=== PATIENT | male | born 1940 | race Caucasian/White ===

== ENCOUNTER 2023-08-30 17:50 | Emergency (ER) | payer MEDICARE ==
[2023-08-30 18:14] LABS: BASOPHILS ABSOLUTE AUTO 0.02 K/uL (0.00-0.10); BASOPHILS PERCENT AUTO 0.5 % (0.1-1.3); EOSINOPHILS PERCENT AUTO 2.6 % (0.0-5.4); HEMATOCRIT 42.5 % (38.4-49.7); HEMOGLOBIN 15.1 g/dL (12.9-16.9); IMMATURE GRAN ABSOLUTE AUTO 0.01 K/uL (0.00-0.23); IMMATURE GRAN PERCENT AUTO 0.3 % (0.0-0.7); LYMPHOCYTES ABSOLUTE AUTO 1.37 K/uL (0.8-3.3); LYMPHOCYTES PERCENT AUTO 34.9 % (11.4-47.7); MEAN CORPUSCULAR HGB CONC 35.5 g/dL (31.6-35.5); MONOCYTES ABSOLUTE AUTO 0.29 K/uL (0.20-0.90); MONOCYTES PERCENT AUTO 7.4 % (3.3-12.6); NEUTROPHILS ABSOLUTE AUTO 2.13 K/uL (1.0-7.6); NEUTROPHILS PERCENT AUTO 54.3 % (40.0-78.1); PLATELET COUNT,PLT 170 K/uL (130-375); RED BLOOD CELL COUNT 4.72 M/uL (4.14-5.76); WHITE BLOOD CELL COUNT,WBC 3.9 K/uL (3.2-11.0)
[2023-08-30] MEDS ORDERED: Iopamidol 755 Mg/ML 100 ML Bottle IV SCH (18:15)
[2023-08-30] MEDS ORDERED: Sodium Chloride 0.9% 100 ML IV SCH (18:15)
[2023-08-30 18:32] LABS: ANION GAP 9.9 mmol/L (5.0-14.0); BLOOD UREA NITROGEN,BUN 16 mg/dL (7-18); CALCIUM 8.5 mg/dL (8.5-10.1); CARBON DIOXIDE,CO2 25 mmol/L (21-32); CHLORIDE,CL 105 mmol/L (100-108); CREATININE 1.2 mg/dL (0.8-1.3); EST CRCL DRUG DOSING (CG) 51.19 mL/min; ESTIMATED GFR 60 mL/min (>60); GLUCOSE RANDOM 166 mg/dL (74-106); POTASSIUM,K 3.7 mmol/L (3.6-5.2); SODIUM,NA 140 mmol/L (140-148)
[2023-08-30 18:38] LABS: C-REACTIVE PROTEIN < 0.50 mg/dL (<0.50)
[2023-08-30] MEDS ORDERED: Sodium Chloride 0.9% 1,000 ML IV ONE (19:26)
[2023-08-30 20:41] LABS: APPEARANCE,URINE CLEAR (CLEAR); BILIRUBIN,URINE NEGATIVE (NEGATIVE); COLOR,URINE YELLOW (YELLOW); GLUCOSE,URINE NEGATIVE (NEGATIVE); KETONES,URINE NEGATIVE (NEGATIVE); LEUKOCYTE ESTERASE,URINE NEGATIVE (NEGATIVE); NITRITE,URINE NEGATIVE (NEGATIVE); OCCULT BLOOD,URINE NEGATIVE (NEGATIVE); PROTEIN,URINE NEGATIVE (NEGATIVE); UROBILINOGEN,URINE 0.2 EU/dL (0.2-1.0)
[2023-08-30 20:48] LABS: AMORPHOUS SEDIMENT,URINE NOT SEEN; BACTERIA,URINE RARE; EPITHELIAL CELLS,URINE NOT SEEN; MUCUS,URINE NOT SEEN; RBC,URINE 0-5 (0-5); WBC,URINE 0-5 (0-5)
[2023-08-30 23:37] VITALS: BP 172/82; PULSE 67
== END 2023-08-30 23:34 | disposition other institution (70) ==
LOC: JP.ED 17:50
DX: I63.9 Cerebral infarction, unspecified (principal); I10 Essential (primary) hypertension; E78.00 Pure hypercholesterolemia, unspecified; Z79.82 Long term (current) use of aspirin; Z88.2 Allergy status to sulfonamides; Z79.899 Other long term (current) drug therapy
CPT/HCPCS: 36415; 70450; 70496; 70498; 80048; 81001; 83605; 84484; 85025; 86140; 93005; 96360; 99285; J3490; J7030; Q9967

== ENCOUNTER 2024-11-28 08:11 | Day surgery (SDC) | payer MEDICARE ==
[~2024-11-28 08:11] MED LIST: Bupivacaine 0.5% 30 ML SDV ONE
[2024-11-28] MEDS ORDERED: Propofol 200 MG/20 ML SDV ONE (08:32)
[2024-11-28] MEDS ORDERED: Ondansetron 4 MG/2 ML SDV ONE (08:32)
[2024-11-28] MEDS ORDERED: Bupivacaine 0.5% 30 ML SDV ONE (08:32)
[2024-11-28] MEDS ORDERED: Dexamethasone 4 MG/ML SDV ONE (08:32)
[2024-11-28] MEDS ORDERED: fentaNYL 250 MCG/5 ML SDV ONE (08:38)
[2024-11-28 08:45] LABS: HEMOGLOBIN 15.6 g/dL (12.9-16.9); MEAN CORPUSCULAR HGB CONC 35.5 g/dL (31.6-35.5); MEAN CORPUSCULAR VOLUME 90.2 fL (81.4-99.0); RED BLOOD CELL COUNT 4.88 M/uL (4.14-5.76); WHITE BLOOD CELL COUNT,WBC 6.4 K/uL (3.2-11.0)
[2024-11-28] MEDS: Nozin Nasal Sanitizer NASBOTH ONE (09:05)
[2024-11-28 09:08] LABS: A/G RATIO 1.4 (1.2-2.2); ALANINE AMINOTRANSFERASE,ALT 23 U/L (12-78); ALBUMIN 4.1 g/dL (3.4-5.0); ALKALINE PHOSPHATASE 87 U/L (46-116); ASPARTATE AMNIOTRANSFERASE,AST 16 U/L (15-37); BLOOD UREA NITROGEN,BUN 15 mg/dL (7-18); CALCIUM 9.5 mg/dL (8.5-10.1); CARBON DIOXIDE,CO2 28 mmol/L (21-32); CHLORIDE,CL 106 mmol/L (100-108); CREATININE 1.1 mg/dL (0.8-1.3); EST CRCL DRUG DOSING (CG) 53.89 mL/min; ESTIMATED GFR 66 mL/min (>60); GLUCOSE RANDOM 106 mg/dL (74-106); SODIUM,NA 143 mmol/L (140-148)
[2024-11-28] MEDS: Lactated Ringers 1,000 ML IV SCH (09:21)
[2024-11-28] MEDS: ceFAZolin 2 GM in Premix Bag 1 BAG IV ONE (11:55)
[2024-11-28] MEDS ORDERED: Lactated Ringers 1,000 ML ONE (12:41)
[2024-11-28] MEDS ORDERED: Neostigmine Methylsulfate 10 MG/10 ML MDV ONE (12:41)
[2024-11-28] MEDS ORDERED: Rocuronium 50 MG/5 ML Vial ONE (12:41)
[2024-11-28] MEDS ORDERED: Glycopyrrolate 0.2 MG/ML 5 ML MDV ONE (12:41)
[2024-11-28] MEDS ORDERED: Succinylcholine 200 MG/10 ML MDV ONE (12:41)
[2024-11-28] MEDS ORDERED: traMADol 50 MG Tab PO PRN (14:22)
[2024-11-28] MEDS: Ondansetron 4 MG/2 ML SDV IVPUSH PRN (15:32)
[2024-11-28 16:46] VITALS: PULSE 64
[2024-11-28 17:37] VITALS: BP 134/78
== END 2024-11-28 17:35 | disposition home or self-care (01) ==
LOC: JP.SDS 08:11
PROVIDERS: ATTEND Specialist
DX: M75.101 Unspecified rotator cuff tear or rupture of right shoulder, not specified as traumatic (principal); M75.41 Impingement syndrome of right shoulder; M75.51 Bursitis of right shoulder; M65.911 Unspecified synovitis and tenosynovitis, right shoulder; S43.001A Unspecified subluxation of right shoulder joint, initial encounter; I10 Essential (primary) hypertension; K21.9 Gastro-esophageal reflux disease without esophagitis; X58.XXXA Exposure to other specified factors, initial encounter
CPT/HCPCS: 29827; 36415; 80053; 85027; A9270; C1713; J0330; J0665; J0690; J1100; J1596; J2405; J2704; J2710; J3010; J7120; 01630-QZ; J3490

== ENCOUNTER 2024-12-06 22:53 | Emergency (ER) | payer MEDICARE ==
[2024-12-06] MEDS: Lidocaine 2% Jelly 10 ML Urojet MUCMEM ONE (23:20)
[2024-12-06] MEDS: Lidocaine 2% Jelly 10 ML Urojet ONE (23:46)
[2024-12-07 00:01] LABS: BILIRUBIN,URINE NEGATIVE (NEGATIVE); COLOR,URINE YELLOW (YELLOW); GLUCOSE,URINE NEGATIVE (NEGATIVE); KETONES,URINE NEGATIVE (NEGATIVE); LEUKOCYTE ESTERASE,URINE NEGATIVE (NEGATIVE); NITRITE,URINE NEGATIVE (NEGATIVE); OCCULT BLOOD,URINE LARGE (NEGATIVE); PROTEIN,URINE TRACE mg/dL (NEGATIVE); UROBILINOGEN,URINE 0.2 EU/dL (0.2-1.0)
[2024-12-07 00:08] LABS: AMORPHOUS SEDIMENT,URINE RARE; APPEARANCE,URINE SLIGHTLY CLOUDY (CLEAR); BACTERIA,URINE FEW; EPITHELIAL CELLS,URINE RARE; MUCUS,URINE FEW; RBC,URINE 50-75 (0-5)
[2024-12-07 00:16] LABS: BASOPHILS PERCENT AUTO 0.3 % (0.1-1.3); EOSINOPHILS PERCENT AUTO 3.2 % (0.0-5.4); HEMATOCRIT 38.6 % (38.4-49.7); HEMOGLOBIN 13.8 g/dL (12.9-16.9); IMMATURE GRAN PERCENT AUTO 0.3 % (0.0-0.7); LYMPHOCYTES ABSOLUTE AUTO 1.23 K/uL (0.8-3.3); LYMPHOCYTES PERCENT AUTO 19.9 % (11.4-47.7); MEAN CORPUSCULAR HEMOGLOBIN 31.7 pg (31.6-35.5); MEAN CORPUSCULAR HGB CONC 35.8 g/dL (31.6-35.5); MEAN CORPUSCULAR VOLUME 88.7 fL (81.4-99.0); MONOCYTES ABSOLUTE AUTO 0.54 K/uL (0.20-0.90); MONOCYTES PERCENT AUTO 8.8 % (3.3-12.6); NEUTROPHILS ABSOLUTE AUTO 4.16 K/uL (1.0-7.6); NEUTROPHILS PERCENT AUTO 67.5 % (40.0-78.1); PLATELET COUNT,PLT 173 K/uL (130-375); RED BLOOD CELL COUNT 4.35 M/uL (4.14-5.76); WHITE BLOOD CELL COUNT,WBC 6.2 K/uL (3.2-11.0)
[2024-12-07 00:17] LABS: BASOPHILS ABSOLUTE AUTO 0.02 K/uL (0.00-0.10); IMMATURE GRAN ABSOLUTE AUTO 0.02 K/uL (0.00-0.23)
[2024-12-07 00:38] LABS: ANION GAP 7.8 mmol/L (5.0-14.0); CALCIUM 8.9 mg/dL (8.5-10.1); CREATININE 1.1 mg/dL (0.8-1.3); EST CRCL DRUG DOSING (CG) 53.89 mL/min; POTASSIUM,K 4.2 mmol/L (3.6-5.2)
[2024-12-07 01:14] VITALS: BP 147/84; PULSE 74
== END 2024-12-07 01:38 | disposition home or self-care (01) ==
LOC: JP.ED 22:53
DX: R33.9 Retention of urine, unspecified (principal); I10 Essential (primary) hypertension; I48.91 Unspecified atrial fibrillation; E78.00 Pure hypercholesterolemia, unspecified; Z86.73 Personal history of transient ischemic attack (TIA), and cerebral infarction without residual deficits; Z88.2 Allergy status to sulfonamides; Z79.01 Long term (current) use of anticoagulants; Z79.899 Other long term (current) drug therapy
CPT/HCPCS: 36415; 51702; 80048; 81001; 85025; 99284

== ENCOUNTER 2025-03-08 08:18 | Day surgery (SDC) | payer MEDICARE ==
[~2025-03-08 08:18] MED LIST changes: -Bupivacaine 0.5% 30 ML SDV ONE; +Bupivacaine 0.5% 50 ML MDV ONE; +Nozin Nasal Sanitizer NASBOTH ONE; +ceFAZolin 2 GM in Sodium Chloride 0.9% 100 ML IV ONE
[2025-03-08] MEDS ORDERED: Bupivacaine 0.5% 30 ML SDV ONE (08:20)
[2025-03-08] MEDS ORDERED: Propofol 200 MG/20 ML SDV ONE (08:23)
[2025-03-08] MEDS ORDERED: Succinylcholine 200 MG/10 ML MDV ONE (08:23)
[2025-03-08] MEDS ORDERED: Ondansetron 4 MG/2 ML SDV ONE (08:23)
[2025-03-08] MEDS ORDERED: Dexamethasone 4 MG/ML SDV ONE (08:23)
[2025-03-08] MEDS ORDERED: Rocuronium 50 MG/5 ML Vial ONE (08:23)
[2025-03-08] MEDS ORDERED: Neostigmine Methylsulfate 10 MG/10 ML MDV ONE (08:23)
[2025-03-08] MEDS ORDERED: Glycopyrrolate 0.2 MG/ML 5 ML MDV ONE (08:23)
[2025-03-08] MEDS ORDERED: fentaNYL 250 MCG/5 ML SDV ONE (08:26)
[2025-03-08 08:58] LABS: HEMATOCRIT 39.8 % (38.4-49.7); HEMOGLOBIN 13.7 g/dL (12.9-16.9); MEAN CORPUSCULAR HEMOGLOBIN 31.9 pg (31.6-35.5); MEAN CORPUSCULAR HGB CONC 34.4 g/dL (31.6-35.5); MEAN CORPUSCULAR VOLUME 92.6 fL (81.4-99.0); RED BLOOD CELL COUNT 4.3 M/uL (4.14-5.76); WHITE BLOOD CELL COUNT,WBC 7.6 K/uL (3.2-11.0)
[2025-03-08 09:13] LABS: ANION GAP 5.2 mmol/L (5.0-14.0); CALCIUM 9.2 mg/dL (8.5-10.1); CREATININE 1.1 mg/dL (0.8-1.3); EST CRCL DRUG DOSING (CG) 53.89 mL/min; POTASSIUM,K 3.9 mmol/L (3.6-5.2)
[2025-03-08] MEDS: Scopalamine 1mg/3day Transdermal Patch TOP SCH (09:44)
[2025-03-08] MEDS: Nozin Nasal Sanitizer NASBOTH SCH ×2 (09:49→20:11)
[2025-03-08] MEDS: Lactated Ringers 1,000 ML IV SCH (10:07)
[2025-03-08] MEDS: ceFAZolin 2 GM in Premix Bag 1 BAG IV ONE (10:57)
[2025-03-08] MEDS ORDERED: ePHEDrine 50 MG/ML SDV ONE (12:12)
[2025-03-08] MEDS ORDERED: Lactated Ringers 1,000 ML ONE (12:13)
[2025-03-08] MEDS ORDERED: oxyCODONE 5 MG Tab PO PRN (13:21)
[2025-03-08] MEDS ORDERED: Benzonatate 100 MG Cap PO PRN (13:21)
[2025-03-08] MEDS ORDERED: Meclizine 25 MG Tab PO PRN (13:21)
[2025-03-08] MEDS ORDERED: Ondansetron 4 MG/2 ML SDV IVPUSH PRN (13:22)
[2025-03-08] MEDS ORDERED: Ketorolac 15 MG/ML SDV IVPUSH PRN (13:22)
[2025-03-08] MEDS ORDERED: Docusate Sodium 100 MG Cap PO PRN (13:22)
[2025-03-08] MEDS: Sodium Chloride 0.9% 1,000 ML IV SCH (14:02)
[2025-03-08] MEDS: Acetaminophen 325 MG Tab PO SCH (14:34)
[2025-03-08] MEDS: traMADol 50 MG Tab PO SCH (15:31)
[2025-03-08] MEDS: SCOPOLAMINE PATCH CHECK TOP SCH (15:33)
[2025-03-08] MEDS: ceFAZolin 2 GM in Premix Bag 1 BAG IV SCH (17:17)
[2025-03-08] MEDS: Tamsulosin 0.4 MG Cap.ER **PTOM PO SCH (20:10)
[2025-03-09 05:45] LABS: HEMATOCRIT 38.8 % (38.4-49.7); HEMOGLOBIN 13.1 g/dL (12.9-16.9); MEAN CORPUSCULAR HEMOGLOBIN 31.3 pg (31.6-35.5); MEAN CORPUSCULAR HGB CONC 33.8 g/dL (31.6-35.5); MEAN CORPUSCULAR VOLUME 92.6 fL (81.4-99.0); RED BLOOD CELL COUNT 4.19 M/uL (4.14-5.76); WHITE BLOOD CELL COUNT,WBC 10.2 K/uL (3.2-11.0)
[2025-03-09] MEDS: Apixaban 5 MG **PTOM PO SCH (08:14)
[2025-03-09] MEDS: amLODIPine 5 MG **PTOM PO SCH (08:15)
[2025-03-09] MEDS ORDERED: Rosuvastatin 5 MG Tab PO SCH (09:00)
[2025-03-09 13:50] VITALS: BP 130/72; PULSE 60
== END 2025-03-09 13:45 | disposition home or self-care (01) ==
LOC: JP.SDS 08:18 → JP.MS 13:22 → JP.SDS 03-09 13:45
PROVIDERS: ATTEND Specialist
DX: M25.311 Other instability, right shoulder (principal); K21.9 Gastro-esophageal reflux disease without esophagitis; I10 Essential (primary) hypertension; Z88.0 Allergy status to penicillin
CPT/HCPCS: 01638; 23474; 36415; 64415; 73020; 80048; 85027; 97110; 97165; 97535; A9270; C1713; C1776; J0330; J0665; J0690; J1100; J1596; J2405; J2704; J2710; J3010; J7030; J7120; J3490